=== PATIENT | female | born 1950 | race Caucasian/White ===

== ENCOUNTER 2023-04-01 07:06 | Emergency (ER) | payer MEDICARE, OTHER ==
[~2023-04-01] VITALS: Ht 175.3 cm; Wt 59.0 kg
[2023-04-01 07:14] VITALS: BP 168/84
[2023-04-01] MEDS ORDERED: MELATONIN5 M1 PO (07:39)
[2023-04-01] MEDS ORDERED: ESCI20 PO (07:39)
[2023-04-01] MEDS ORDERED: ATOR40TA PO (07:39)
[2023-04-01] MEDS ORDERED: ASPI81CH PO (07:39)
[2023-04-01 07:40] LABS: BASOPHILS ABSOLUTE AUTO 0.02 K/mm3 (0.00-0.23); BASOPHILS PERCENT AUTO 0 % (0-2); EOSINOPHILS ABSOLUTE AUTO 0.14 K/mm3 (0.00-0.68); EOSINOPHILS PERCENT AUTO 2 % (0-6); Hematocrit 38.3 % (33.0-51.0); Hemoglobin 12.1 g/dL (11.5-16.0); IMMATURE GRAN ABSOLUTE AUTO 0.02 K/mm3 (0.00-0.10); IMMATURE GRAN PERCENT AUTO 0 % (0-1); LYMPHOCYTES ABSOLUTE AUTO 1.14 K/mm3 (0.84-5.20); LYMPHOCYTES PERCENT AUTO 18 % (21-46); MONOCYTES ABSOLUTE AUTO 0.56 K/mm3 (0.16-1.47); MONOCYTES PERCENT AUTO 9 % (4-13); Mean Corpuscular HGB Conc 31.6 g/dL (31.5-36.5); Mean Corpuscular Volume 101 fL (80-100); Mean Platelet Volume 10.6 fL (9.1-12.4); NEUTROPHILS ABSOLUTE AUTO 4.45 K/mm3 (1.96-9.15); NEUTROPHILS PERCENT AUTO 70 % (41-73); Platelet Count 130 K/mm3 (150-400); RDW Coefficient Variation 15.9 % (11.7-14.2); RDW Standard Deviation 59.1 fL (35.1-46.3); Red Blood Cell Count 3.78 M/mm3 (3.80-5.20); White Blood Cell Count 6.33 K/mm3 (4.00-11.30)
[2023-04-01] MEDS ORDERED: TRAZ100 PO (07:40)
[2023-04-01] MEDS ORDERED: MIDO5 PO (07:40)
[2023-04-01] MEDS ORDERED: WARF5 PO (07:40)
[2023-04-01] MEDS ORDERED: Norco 10-325 T1 EACH PO (07:41)
[2023-04-01] MEDS ORDERED: TETR250 PO (07:41)
[2023-04-01] MEDS ORDERED: ONDA4 PO (07:42)
[2023-04-01] MEDS ORDERED: Acetaminophen325 M1 PO (07:42)
[2023-04-01 08:06] LABS: Albumin, Blood 3.8 g/dL (3.4-5.0); Albumin/Globulin Ratio 1.2 (0.8-1.8); Bilirubin, Total 0.4 mg/dL (0.1-1.0); Bun/Creatinine Ratio 7.8 (12.0-20.0); Calcium, Blood 10.5 mg/dL (8.5-10.1); Creatinine, Blood 6.28 mg/dL (0.40-1.00); Globulin, Blood 3.3 g/dL (2.2-4.0); Total Protein, Blood 7.1 g/dL (6.4-8.2)
[2023-04-01 08:15] LABS: International Normalized Ratio 1.89; Prothrombin Time Results 19.1 Sec (9.7-11.5)
[2023-04-01] MEDS ORDERED: HYDHCL25 PO (09:26)
== END 2023-04-01 09:49 | disposition home or self-care (01) ==
LOC: ER 07:06
PROVIDERS: Student in an Organized Health Care Education/Training Program
DX: R21 Rash and other nonspecific skin eruption (principal); S30.1XXA Contusion of abdominal wall, initial encounter; I12.0 Hypertensive chronic kidney disease with stage 5 chronic kidney disease or end stage renal disease; E11.22 Type 2 diabetes mellitus with diabetic chronic kidney disease; N18.6 End stage renal disease; Z99.2 Dependence on renal dialysis; Q61.2 Polycystic kidney, adult type; Z94.0 Kidney transplant status; Z79.82 Long term (current) use of aspirin; Z79.01 Long term (current) use of anticoagulants; Z79.899 Other long term (current) drug therapy; Z88.8 Allergy status to other drugs, medicaments and biological substances; X58.XXXA Exposure to other specified factors, initial encounter
CPT/HCPCS: 80053; 84484; 85025; 85610; 99283; A9270